=== PATIENT | female | born 1965 | race Caucasian/White ===

== ENCOUNTER 2016-11-04 08:00 | Day surgery (SDC) | payer OTHER ==
[~2016-11-04] VITALS: Ht 167.6 cm; Wt 107.3 kg
[~2016-11-04 08:00] MED LIST: BENA10TA48 PO; COU5 PO; FENO160T13 PO; LANC1COM MC; LANT3I SC; LEVO25TA59 PO; LOVENOX; PANT20TA2 PO; SITA100T8 PO; glucometer
[2016-11-04 08:58] VITALS: Ht 167.6 cm; Wt 107.3 kg
[2016-11-04] MEDS ORDERED: PROPOFOL 20 ML ONE (09:26)
[2016-11-04] MEDS ORDERED: MIDAZOLAM 1 MG/ML 2 ML INJ ONE ×2 (09:26)
[2016-11-04] MEDS ORDERED: INSU300I SQ (09:28)
[2016-11-04] MEDS ORDERED: NOVO3I SC (09:28)
[2016-11-04 09:36] VITALS: BP 153/73; PULSE 66; RESP 16
[2016-11-04 10:35] VITALS: BP 98/41; PULSE 69; RESP 18
--- NOTE | 2016-11-04 11:12 | GILP ---
DATE OF PROCEDURE: 11/04/2016 NAME OF PROCEDURE: Colonoscopy. SURGEON: Babs Garcia MD PREOPERATIVE DIAGNOSES: Change in bowel habit. POSTOPERATIVE DIAGNOSES 1. Colonoscopy all the way to the cecum. 2. Internal hemorrhoids. 3. No colon neoplasm was identified. INDICATION FOR THE PROCEDURE: Ms. Ava Nunez is a 51-year-old female patient who noticed a joshua nge in the bowel habit. The patient never had screening colonoscopy. The procedure and possible complications were well explained to the patient. The patient understood and consented to the procedure. DESCRIPTION OF PROCEDURE: Under the influence of anesthesia, the colonoscope was carefully introduc ed in the rectum and under direct vision, it was advanced all the way to the cecum. FINDINGS: The patient had internal hemorrhoids. No colon neoplasm was identified. She tolerated the procedure very well and there was no complication from the procedure. At the end of the procedure, she was awake with stable vital signs and she was discharged home to the care of h er family. IMPRESSION: 1. Colonoscopy all the way to the cecum. 2. Internal hemorrhoids. 3. No colon neoplasm was identified. PLAN: 1. High fiber diet. 2. Next screening colonoscopy in 10 years. Dictated By: ABBS CLARK/MINH Conf#: [id number] DID#: [id number] CC: BABS GARCIA MD;*EndCC*
== END 2016-11-04 11:54 | disposition home or self-care (01) ==
LOC: GIL 08:00
PROVIDERS: ATTEND Internal Medicine Gastroenterology
DX: R19.4 Change in bowel habit (principal); K64.8 Other hemorrhoids; E11.9 Type 2 diabetes mellitus without complications; I10 Essential (primary) hypertension; E66.9 Obesity, unspecified; Z68.38 Body mass index [BMI] 38.0-38.9, adult
CPT/HCPCS: 45378; 82962; J2250; Z7610

== ENCOUNTER 2016-12-28 13:52 | Emergency (ER) | payer OTHER ==
[~2016-12-28] VITALS: Ht 167.6 cm; Wt 105.5 kg
[~2016-12-28 13:52] MED LIST changes: -FENO160T13 PO; +INSU300I SQ; -LANT3I SC; +NOVO3I SC; -PANT20TA2 PO; -SITA100T8 PO
[2016-12-28 14:04] VITALS: Ht 167.6 cm; Wt 105.5 kg
[2016-12-28] MEDS ORDERED: AMO500 PO (14:32)
[2016-12-28] MEDS ORDERED: FLUT9.9S NASAL (14:33)
[2016-12-28] MEDS ORDERED: ACET500C5 PO (14:33)
[2016-12-28] MEDS ORDERED: CETI10CA PO (14:36)
--- NOTE | 2016-12-28 14:40 | ERD ---
ER Documentation Chief Complaint Date/Time DATE: 12/28/16 TIME: 14:37 Chief Complaint RIGHT EAR PAIN HPI This is a 51-year-old female who presents to the emergency department today complaining of left ear pain that started last night. Patient states that she took Tylenol with codeine but has not really helped. States she has also had some nasal congestion and sore throat. Denies any fevers or chills per ROS All systems reviewed and are negative except as per history of present illness. Medications Home Meds Active Scripts Cetirizine Hcl* (Zyrtec*) 10 Mg Capsule, 10 MG PO DAILY, #14 TAB.CHEW Prov:JOHANA AMEZQUITAC 12/28/16 Fluticasone Propionate (Flonase Allergy Relief) 9.9 Ml [place].susp, 2 SPRAY NASAL DAILY, #1 BOTTLE TO EACH NOSTRIL Prov:JOHANA AMEZQUITAC 12/28/16 Acetaminophen* (Tylophen*) 500 Mg Capsule, 1 CAP PO Q6H Y for PAIN AND OR ELEVATED TEMP, #30 CAP Prov:JOHANA AMEZQUITAC 12/28/16 Amoxicillin* (Amoxicillin*) 500 Mg Cap, 500 MG PO TID for 10 Days, CAP Prov:JOHANA AMEZQUITAC 12/28/16 Lancets/Blood Glucose Strips (Fora [id number] Lanct-Str) 1 Each Combo..pkg , 1 EACH MC AC BREAKFAST DINNER, #100 Prov:GINA GUTIERREZ 11/06/15 [glucometer] No Conflict Check, #1 Prov:GINA GUTIERREZ 11/06/15 Warfarin Sod (Coumadin) 5 Mg Tab, 5 MG PO DAILY@17, #14 TAB Prov:GINA GUTIERREZ 11/06/15 Benazepril Hcl* (Benazepril Hcl*) 10 Mg Tablet, 5 MG PO DAILY, #30 TAB Prov:GINA GUTIERREZ 11/06/15 Reported Medications Insulin Glargine,Hum.rec.anlog (Touvanessa Solostar) 300 Unit/1 Ml Insuln.pen, 50 UNIT SQ DAILY 11/04/16 Insulin Aspart* (Novolog Insulin Pen*) 100 Unit/Ml Soln, 26 UNIT SC TID, EA 11/04/16 [Lovenox] No Conflict Check 07/14/16 Levothyroxine Sodium* (Synthroid*) 25 Mcg Tablet, 25 MCG PO AC BREAKFAST, TAB 04/24/15 Allergies Allergies: Coded Allergies: sulfamethoxazole (Verified Allergy, Unknown, 11/04/16) trimethoprim (Verified Allergy, Unknown, 11/04/16) PMhx/Soc History of Surgery: Yes (, vena cava filter, luanne stent femoral) Anesthesia Reaction: No Hx Neurological Disorder: No Hx Respiratory Disorders: No Hx Cardiac Disorders: No Hx Psychiatric Problems: No Hx Miscellaneous Medical Probl: Yes (hx dvt) Hx Alcohol Use: No Hx Substance Use: No Hx Tobacco Use: No Physical Exam Vitals Vital Signs Date Time Temp Pulse Resp B/P Pulse Ox O2 Delivery O2 Flow Rate FiO2 12/28/16 14:04 98.3 73 19 124/56 99 Physical Exam Const: No acute distress Head: Atraumatic Eyes: Normal Conjunctiva ENT: Right ear TM normal. Left TM with mild erythema and decreased light reflex. Nontender mastoid. Nose no drainage. Throat no erythema no exudate Neck: Full range of motion..~ No meningismus. Resp: Clear to auscultation bilaterally Cardio: Regular rate and rhythm, no murmurs Skin: No petechiae or rashes Neur: Awake and alert Psych: Normal Mood and Affect Procedures/MDM This a 51-year-old female who presents to the emergency department today complaining of left earache that started last night. Patient is afebrile and otherwise well-appearing here on physical exam. Patient has some mild TM erythema in her left ear as well as decreased light reflex and therefore I will treat her with amoxicillin for possible otitis media. There is no purulent drainage. Low suspicion for otitis externa. She is nontender mastoid. Low suspicion for mastoiditis. I have low suspicion for strep pharyngitis, peritonsillar abscess, retropharyngeal abscess, PNA, sinusitis, abscess, meningitis, sepsis, or other acute infectious bacterial process. Patient also mentioned she has had some nasal congestion and some sore throat she may have some element of eustachian tube dysfunction as well. Patient was also given a prescription for Flonase and Zyrtec and Tylenol. At this time the patient is stable for discharge and outpatient management. They should follow up with their PCP in the next 1-2. They may return to the emergency department sooner if symptoms persist or worsen. Patient understood and agreed with the plan. Departure Diagnosis: Primary Impression: Left ear pain Condition: Fair Patient Instructions: Common Middle Ear Problems Referrals: ELAINE FRIAS DO (PCP) Additional Instructions: Call your primary care doctor TOMORROW for an appointment during the next 1-2 days.See the doctor sooner or return here if your condition worsens before your appointment time. Return for any worsening of symptoms or development of fevers Take all medications as prescribed Take your usual pain medication JOHANA AMEZQUITA PA-C Dec 28, 2016 14:40
== END 2016-12-28 14:34 | disposition home or self-care (01) ==
LOC: E/R 13:52
DX: H92.02 Otalgia, left ear (principal); E11.9 Type 2 diabetes mellitus without complications; Z79.01 Long term (current) use of anticoagulants; Z79.4 Long term (current) use of insulin
CPT/HCPCS: 99283

== ENCOUNTER 2017-01-30 18:30 | Emergency (ER) | payer OTHER ==
[~2017-01-30] VITALS: Ht 165.1 cm; Wt 108.0 kg
[~2017-01-30 18:30] MED LIST changes: +ACET500C5 PO; +AMO500 PO; +CETI10CA PO; +FLUT9.9S NASAL
[2017-01-30 18:37] VITALS: Ht 165.1 cm; Wt 108.0 kg
[2017-01-30 20:58] LABS: URINE BLOOD (Dip) POC Trace-lysed (NEGATIVE)
[2017-01-30] MEDS ORDERED: FAMOTIDINE 20 MG TAB PO ONE (21:00)
[2017-01-30 21:15] LABS: ADD SCAN DIFF NO
[2017-01-30 21:17] LABS: BASOPHILS % 0.3 % (0.0-2.0); EOSINOPHILS # 0.2 10^3/ul (0.0-0.5); EOSINOPHILS % 1.8 % (0.0-7.0); HEMOGLOBIN 12.2 g/dl (12.0-16.0); LYMPHOCYTES # 4.6 10^3/ul (0.8-2.9); LYMPHOCYTES % 39.7 % (15.0-51.0); MEAN CORPUSCULAR HEMOGLOBIN 26.9 pg (29.0-33.0); MEAN CORPUSCULAR HGB CONC 31.3 g/dl (32.0-37.0); MEAN CORPUSCULAR VOLUME 86.1 fl (82.0-101.0); MEAN PLATELET VOLUME 9.1 fl (7.4-10.4); MONOCYTE # 0.7 10^3/ul (0.3-0.9); MONOCYTES % 5.7 % (0.0-11.0); NEUTROPHILS % 52.1 % (39.0-77.0); PLATELET COUNT 377 10^3/UL (140-415); RED BLOOD COUNT 4.53 10^6/ul (4.20-5.40); WHITE BLOOD COUNT 11.5 10^3/ul (4.8-10.8)
[2017-01-30 21:35] LABS: ALBUMIN 4.5 g/dl (3.3-4.9); ALBUMIN/GLOBULIN RATIO 1.09; BILIRUBIN,INDIRECT 0.3 mg/dl (0-1.1); BILIRUBIN,TOTAL 0.3 mg/dl (0.2-1.3); CALCIUM 9.4 mg/dl (8.4-10.2); CREATININE 0.85 mg/dl (0.44-1.00); POTASSIUM 4.1 mmol/L (3.5-5.1); TOTAL PROTEIN 8.6 g/dl (6.1-8.1)
--- NOTE | 2017-01-30 22:14 | ERD ---
ER Documentation Chief Complaint Date/Time DATE: 01/30/17 TIME: 22:07 Chief Complaint worsened abd pain since sat. +n/v +diarrhea. +bloating. HPI This is a 51-year-old female presenting to emergency department for abdominal pain, nausea, vomiting and diarrhea 3 days. Patient has patient is also had increased bloating over the past 3 days. Moderate to severe epigastric pain that radiates p to bilateral upper and lower quadrants of abdomen. Denies chest pain, shortness of breath or difficulty breathing. No cough. Patient states she had 4 episodes of bilious emesis yesterday. 2 episodes of bilious emesis today. Nonbloody emesis. Patient has had numerous episodes of yellow liquid stool. No black or tarry stools. Nonbloody stool. Patient denies fever. Patient has history of GERD and states she takes omeprazole at home. No recent travel outside the country. ROS All systems reviewed and are negative except as per history of present illness. Medications Home Meds Active Scripts Mineral Oil* (Fleet* Mineral Oil Enema) 133 Ml Oil, 133 ML [place] NEEDED Y for CONSTIPATION, #1 ENEMA Prov:LESLIE PLATT NP 01/31/17 Cetirizine Hcl* (Zyrtec*) 10 Mg Capsule, 10 MG PO DAILY, #14 TAB.CHEW Prov:JOHANA AMEZQUITA PA-C 12/28/16 Fluticasone Propionate (Flonase Allergy Relief) 9.9 Ml [place].susp, 2 SPRAY NASAL DAILY, #1 BOTTLE TO EACH NOSTRIL Prov:JOHANA AMEZQUITA PA-C 12/28/16 Acetaminophen* (Tylophen*) 500 Mg Capsule, 1 CAP PO Q6H Y for PAIN AND OR ELEVATED TEMP, #30 CAP Prov:JOHANA AMEZQUITA PA-C 12/28/16 Amoxicillin* (Amoxicillin*) 500 Mg Cap, 500 MG PO TID for 10 Days, CAP Prov:JOHANA AMEZQUITA PA-C 12/28/16 Lancets/Blood Glucose Strips (Fora [id number] Lanct-Str) 1 Each Combo..pkg , 1 EACH MC AC BREAKFAST DINNER, #100 Prov:GINA GUTIERREZ 11/06/15 [glucometer] No Conflict Check, #1 Prov:GINA GUTIERREZ. 11/06/15 Warfarin Sod (Coumadin) 5 Mg Tab, 5 MG PO DAILY@17, #14 TAB Prov:GINA GUTIERREZ. 11/06/15 Benazepril Hcl* (Benazepril Hcl*) 10 Mg Tablet, 5 MG PO DAILY, #30 TAB Prov:GINA GUTIERREZ. 11/06/15 Reported Medications Insulin Glargine,Hum.rec.anlog (Toujeo Solostar) 300 Unit/1 Ml Insuln.pen, 50 UNIT SQ DAILY 11/04/16 Insulin Aspart* (Novolog Insulin Pen*) 100 Unit/Ml Soln, 26 UNIT SC TID, EA 11/04/16 [Lovenox] No Conflict Check 07/14/16 Levothyroxine Sodium* (Synthroid*) 25 Mcg Tablet, 25 MCG PO AC BREAKFAST, TAB 04/24/15 Allergies Allergies: Coded Allergies: sulfamethoxazole (Verified Allergy, Unknown, 01/30/17) trimethoprim (Verified Allergy, Unknown, 11/04/16) PMhx/Soc History of Surgery: Yes (, vena cava filter, luanne stent femoral) Anesthesia Reaction: No Hx Neurological Disorder: No Hx Respiratory Disorders: No Hx Cardiac Disorders: No Hx Psychiatric Problems: No Hx Miscellaneous Medical Probl: Yes (hx dvt) Hx Alcohol Use: No Hx Substance Use: No Hx Tobacco Use: No Smoking Status: Never smoker Physical Exam Vitals Vital Signs Date Time Temp Pulse Resp B/P Pulse Ox O2 Delivery O2 Flow Rate FiO2 01/30/17 18:37 97.9 70 18 142/65 98 Physical Exam Const: Alert, no acute distress Head: Atraumatic Eyes: Normal Conjunctiva ENT: Normal External Ears, Nose and Mouth. Neck: Full range of motion..~ No meningismus. Resp: Clear to auscultation bilaterally. No wheezing, rhonchi or crackles. Cardio: Regular rate and rhythm, no murmurs Abd: Soft, moderate distention. Normal bowel sounds, tenderness to epigastric region Skin: No petechiae or rashes Back: No midline or flank tenderness Ext: No cyanosis, or edema Neur: Awake and alert Psych: Normal Mood and Affect Result Diagram: 01/30/17210201/30/172102 Results 24 hrs Laboratory Tests Test 01/30/17 20:59 01/30/17 21:03 Bedside Urine pH (LAB) 5.0 Bedside Urine Protein (LAB) Negative Bedside Urine Glucose (UA) Negative Bedside Urine Ketones (LAB) Negative Bedside Urine Blood Trace-lysed Bedside Urine Nitrite (LAB) Negative Bedside Urine Leukocyte Esterase (L Negative White Blood Count 11.510^3/ul Red Blood Count 4.5310^6/ul Hemoglobin 12.2g/dl Hematocrit 39.0% Mean Corpuscular Volume 86.1fl Mean Corpuscular Hemoglobin 26.9pg Mean Corpuscular Hemoglobin Concent 31.3g/dl Red Cell Distribution Width 16.0% Platelet Count 53147^3/UL Mean Platelet Volume 9.1fl Neutrophils % 52.1% Lymphocytes % 39.7% Monocytes % 5.7% Eosinophils % 1.8% Basophils % 0.3% Nucleated Red Blood Cells % 0.0/100WBC Neutrophils # 6.010^3/ul Lymphocytes # 4.610^3/ul Monocytes # 0.710^3/ul Eosinophils # 0.210^3/ul Basophils # 0.010^3/ul Nucleated Red Blood Cells # 0.010^3/ul Sodium Level 138mmol/L Potassium Level 4.1mmol/L Chloride Level 103mmol/L Carbon Dioxide Level 27mmol/L Anion Gap 12 Blood Urea Nitrogen 9mg/dl Creatinine 0.85mg/dl Glucose Level 130mg/dl Calcium Level 9.4mg/dl Total Bilirubin 0.3mg/dl Direct Bilirubin 0.00mg/dl Indirect Bilirubin 0.3mg/dl Aspartate Amino Transf (AST/SGOT) 48IU/L Alanine Aminotransferase (ALT/SGPT) 47IU/L Alkaline Phosphatase 178IU/L Total Protein 8.6g/dl Albumin 4.5g/dl Globulin 4.10g/dl Albumin/Globulin Ratio 1.09 Current Medications Medications (Trade) Dose Ordered Sig/Casi Route PRN Reason Start Time Stop Time Status Last Admin Dose Admin Famotidine (Pepcid) 20 mg ONCE ONCE PO 01/30/17 21:00 01/30/17 21:01 DC 01/30/17 21:00 Acetaminophen/ Hydrocodone Bitart ([place] (5/325)) 1 tab ONCE ONCE PO 01/30/17 23:00 01/30/17 23:01 DC 01/30/17 23:01 Ondansetron HCl (Zofran Odt) 4 mg ONCE STAT ODT 01/30/17 23:02 01/30/17 23:03 DC 01/30/17 23:05 Sodium Biphosphate/ Sodium Phosphate (Fleet Enema) 133 ml ONCE ONCE OH 01/31/17 01:00 01/31/17 01:01 DC Procedures/MDM ED COURSE: The patient was stable throughout ED course. I kept the patient and/or family informed of laboratory and diagnostic imaging results throughout the ED course. Laboratory CBC white blood cell 11.5 CMP AST 48, alkaline phosphatase 178, protein 8.6, globulin 4.10 Urine dip trace blood otherwise negative Urine negative Imaging CT abdomen and pelvis Patient: RENALDO CASTANEDA : 1965 Age: 51 Sex: F MR #: [id number] DOS: 01/30/17 2142 Ordering MD: LESLIE PLATT NP Location: [facility] Room/Bed: PROCEDURE: CT ABDOMEN/PELVIS WITHOUT CONTRAST CLINICAL INDICATION: 51-year-old female with abdominal pain and distension with diarrhea and vomiting. TECHNIQUE: The study was performed utilizing a GE Xi[employer]ader VCT 64-slice CT scanner. Direct axial sections were obtained through the abdomen and pelvis without the use of intravenous contrast material. Sagittal and coronal reformations were obtained. One or more of the following dose reduction techniques were utilized: automated exposure control, adjustment of the mA and/ or kV according to patient's size or use of iterative reconstruction technique. The images were reviewed on a PACS workstation. CTD/vol = 22.3 mGy; Total Exam DLP = 1276.4 mGy-cm. COMPARISON: CT abdomen/pelvis December 20, 2015. FINDINGS: The lung bases are unremarkable. There is no evidence for significant pleural effusion. The liver has a normal size and contour without focal areas of abnormal density. No intrahepatic nor extrahepatic biliary ductal dilatation is seen. The gallbladder demonstrates no wall thickening nor pericholecystic fluid. No biliary stones are evident. The pancreas is without areas of abnormal attenuation. The spleen is identified and has a normal size with a punctate peripheral calcification seen on axial image 3-58. The adrenal glands are unremarkable. The kidneys are without abnormal density. No hydroureteronephrosis nor nephroureterolithiasis is evident. The urinary bladder contains urine. There is mild retained stool within the ascending and transverse colon without obstruction. There are couple of small diverticula within the sigmoid colon without surrounding inflammatory changes. The appendix is again noted to be mildly prominent measuring up to 7 mm but without abnormal thickening or surrounding inflammatory reaction. There is an inferior vena cava filter again identified extending from the superior L2 to the mid L3 vertebral body. There are stents again identified within the inferior vena cava extending into the left iliac vein. The aortoiliac vessels are without aneurysmal dilatation. Again noted are extensive collateral veins within the lower pelvic and inguinal soft tissues. The osseous structures are intact. IMPRESSION: 1. Mild retained stool within the proximal colon without obstruction. 2. Borderline prominent appendix but without surrounding inflammatory changes and without interval change. 3. Minimal sigmoid diverticulosis. 4. Inferior vena cava filter. 5. Inferior vena cava and iliac vein stents. 6. Persistent extensive collateral veins within the lower ventral pelvic and inguinal soft tissues. MDM: 51-year-old female presents emergency department for epigastric abdominal pain with nausea, vomiting, diarrhea and bloating. Symptoms have started 3 days ago and have worsened. No fevers or chills. Patient has had bilious emesis twice today and yellow liquid stools for the past 3 days. Patient has history of acid reflux and takes omeprazole at home. Patient took omeprazole with no relief of symptoms. Labs show white blood cell 11.5, CMP AST 48, alkaline phosphatase 178, protein 8.6, globulin 4.10. CT abdomen and pelvis shows mild retained stool within the proximal colon without obstruction. Borderline prominent appendix but without surrounding inflammatory changes and without interval change. Minimal sigmoid diverticulosis. Consulted Dr. De Los Santos regarding this patient. We agree that patient should receive a fleet enema while in the ED and should be appropriate for outpatient management and 8 hour ER follow up with continued Abdominal pain. Patient refused fleet enema while in the ER and would like a prescription for this at home. Differential diagnosis includes but not limited to bowel obstruction, cholecystitis, cholelithiasis, appendicitis, diverticulosis, diverticulitis, UTI , pyelonephritis, GERD, gastritis, peptic ulcer disease, gastroparesis and functional dyspepsia. Patient is appropriate for outpatient management and instructed to use fleet enema at home and return to ED in 8 hours for abdominal pain recheck. Patient verbalizes understanding. All questions answered at discharge. Departure Diagnosis: Primary Impression: Abdominal pain Abdominal location: epigastric Qualified Code: R10.13 - Epigastric pain Condition: Stable LESLIE PLATT NP January 30, 2017 22:14
[2017-01-30] MEDS ORDERED: HYDROCODONE/APAP (5/325) TAB PO ONE (23:00)
[2017-01-30] MEDS ORDERED: ONDANSETRON (ODT) 4 MG TAB ODT STA (23:02)
--- NOTE | 2017-01-30 23:20 | RADRPT ---
PROCEDURE: CT ABDOMEN/PELVIS WITHOUT CONTRAST CLINICAL INDICATION: 51-year-old female with abdominal pain and distension with diarrhea and vomit ing. TECHNIQUE: The study was performed utilizing a GE [employer]ed VCT 64-slice CT scanner. Direct axia l sections were obtained through the abdomen and pelvis without the use of intravenous contrast mate rial. Sagittal and coronal reformations were obtained. One or more of the following dose reduction t echniques were utilized: automated exposure control, adjustment of the mA and/or kV according to pat ient's size or use of iterative reconstruction technique. The images were reviewed on a PACS workst [employer] [place]. CTD/vol = 22.3 mGy; Total Exam DLP = 1276.4 mGy-cm. COMPARISON: CT abdomen/pelvis December 20, 2015. FINDINGS: The lung bases are unremarkable. There is no evidence for significant pleural effusion. The liver has a normal size and contour without focal areas of abnormal density. No intrahepatic nor extrahepa tic biliary ductal dilatation is seen. The gallbladder demonstrates no wall thickening nor perichole cystic fluid. No biliary stones are evident. The pancreas is without areas of abnormal attenuation. The spleen is identified and has a normal size with a punctate peripheral calcification seen on axi al image 3-58. The adrenal glands are unremarkable. The kidneys are without abnormal density. No hyd roureteronephrosis nor nephroureterolithiasis is evident. The urinary bladder contains urine. There is mild retained stool within the ascending and transverse colon without obstruction. There are coup le of small diverticula within the sigmoid colon without surrounding inflammatory changes. The appen renetta is again noted to be mildly prominent measuring up to 7 mm but without abnormal thickening or surrounding inflammatory reaction. There is an inferior vena cava filter again identified extending from the superior L2 to the mid L3 vertebral body. There are stents again identified within the inf erior vena cava extending into the left iliac vein. The aortoiliac vessels are without aneurysmal d ilatation. Again noted are extensive collateral veins within the lower pelvic and inguinal soft tiss ues. The osseous structures are intact. IMPRESSION: 1. Mild retained stool within the proximal colon without obstruction. 2. Borderline prominent appendix but without surrounding inflammatory changes and without interval change. 3. Minimal sigmoid diverticulosis. 4. Inferior vena cava filter. 5. Inferior vena cava and iliac vein stents. 6. Persistent extensive collateral veins within the lower ventral pelvic and inguinal soft tissues. .Joey Broderick MD, MD Date Time Electronically viewed and signed by .Joey Broderick MD, MD on 01/30/2017 23:20 ./
[2017-01-31] MEDS ORDERED: NA PHOSPHATE/BIPHOS 133 ML ENEMA PR ONE (01:00)
[2017-01-31] MEDS ORDERED: FLEETOIL PR (01:13)
== END 2017-01-31 01:18 | disposition home or self-care (01) ==
LOC: FTE 18:30
DX: R10.13 Epigastric pain (principal); R11.2 Nausea with vomiting, unspecified; Z79.01 Long term (current) use of anticoagulants; Z79.4 Long term (current) use of insulin
CPT/HCPCS: 74176; 80053; 81003; 85025; Z7502; Z7610

== ENCOUNTER 2018-06-07 22:16 | Emergency (ER) | END 2018-06-08 05:01 | disposition home or self-care (01) ==

== ENCOUNTER 2018-10-11 09:57 | Day surgery (SDC) | payer OTHER ==
[~2018-10-11] VITALS: Ht 167.6 cm; Wt 107.2 kg
[~2018-10-11 09:57] MED LIST changes: -AMO500 PO; +AMOX500C2 PO; +BENA10TA4 PO; -BENA10TA48 PO; +CYCL10TA7 PO; +HYDR-4011 PO; +LEVO25TA PO; -LEVO25TA59 PO; +MINE133E23 PR
--- NOTE | 2018-10-11 10:43 | PREAC ---
Date/Time of Note Date/Time of Note DATE: 10/11/18 TIME: 10:40 Anesthesia Eval and Record Evaluation Time Pre-Procedure Interview DATE: 10/11/18 TIME: 10:40 Age 53 Sex female NPO: 8 hrs Preoperative diagnosis abd pain, chronic heart burn, REFLUX Planned procedure EGD colonoscopy Past Medical History Past Medical History: Includes Cardio: Other (DVT) Endo: Diabetes GI: Obesity, Other (fatty liver) Surgery & Anesthesia Issues No known issue Meds Anticoagulation: Yes Beta Love within 24 hr: No Reason Beta Love not given: Pt. not on B-Love Active Scripts Cyclobenzaprine Hcl* (Cyclobenzaprine Hcl*) 10 Mg Tablet, 10 MG PO TID, #15 TAB Prov:HAILEE OH CONTENT DIRECTOR 06/08/18 Hydrocodone/Acetaminophen ([place] 5-325 Tablet) 1 Each Tablet, 1 TAB PO Q6H PRN for SEVERE PAIN LEVEL 7-10, #20 TAB Prov:HAILEE OH NP 06/08/18 Acetaminophen* (Tylophen*) 500 Mg Capsule, 1 CAP PO Q6H PRN for PAIN AND OR ELEVATED TEMP, #20 CAP Prov:HAILEE OH CONTENT DIRECTOR 06/08/18 Mineral Oil* (Fleet* Mineral Oil Enema) 133 Ml Oil, 133 ML [place] NEEDED PRN for CONSTIPATION, #1 ENEMA Prov:LESLIE PLATT NP 01/31/17 Cetirizine Hcl* (Zyrtec*) 10 Mg Capsule, 10 MG PO DAILY, #14 TAB.CHEW Prov:JOHANA AMEZQUITA PA-C 12/28/16 Fluticasone Propionate (Flonase Allergy Relief) 9.9 Ml [place].susp, 2 SPRAY NASAL DAILY, #1 BOTTLE TO EACH NOSTRIL Prov:JOHANA AMEZQUITAC 12/28/16 Acetaminophen* (Tylophen*) 500 Mg Capsule, 1 CAP PO Q6H PRN for PAIN AND OR ELEVATED TEMP, #30 CAP Prov:JOHANA AMEZQUITA-C 12/28/16 Amoxicillin* (Amoxicillin*) 500 Mg Cap, 500 MG PO TID for 10 Days, CAP Prov:JOHANA AMEZQUITA-C 4/5/17 Lancets/Blood Glucose Strips (Fora [id number] Lanct-Str) 1 Each Combo..pkg, 1 EACH MC AC BREAKFAST DINNER, #100 Prov:GINA GUTIREREZ. 11/06/15 [glucometer] No Conflict Check, #1 Prov:GINA GUTIERREZ. 11/06/15 Warfarin Sod (Coumadin) 5 Mg Tab, 5 MG PO DAILY@17, #14 TAB Prov:GINA GUTIERREZ 11/06/15 Benazepril Hcl* (Benazepril Hcl*) 10 Mg Tablet, 5 MG PO DAILY, #30 TAB Prov:GINA GUTIERREZ. 11/06/15 Reported Medications Insulin Glargine,Hum.rec.anlog (Toujeo Solostar) 300 Unit/1 Ml Insuln.pen, 50 UNIT SQ DAILY 11/04/16 Insulin Aspart* (Novolog Insulin Pen*) 100 Unit/Ml Soln, 26 UNIT SC TID, EA 11/04/16 [Lovenox] No Conflict Check 07/14/16 Levothyroxine Sodium* (Synthroid*) 25 Mcg Tablet, 25 MCG PO AC BREAKFAST, TAB 04/24/15 Meds reviewed: Yes Allergies Coded Allergies: sulfamethoxazole (Verified Allergy, Unknown, 01/30/17) trimethoprim (Verified Allergy, Unknown, 11/04/16) Allergies Reviewed: Yes Labs/Studies Labs Reviewed: Reviewed by anesthesiologist test: N/A (menopause) Pre-procedure Exam Airway: Adequate mouth opening Mallampati: Mallampati I Teeth: Normal Lung: Normal Heart: Normal ASA Physical Status ASA physical status: 2 Emergency: None Planned Anesthetic General/MAC: MAC Planned Pain Management Parenteral pain med Pre-operative Attestations Prior to commencing anesthesia and surgery, the patient was re-evaluated, there was verification of: *The patient's identity *The results of appropriate recent lab work and preoperative vital signs *The above evaluation not changing prior to induction *Anesthetic plan, risk benefits, alternative and complications discussed with patient/family; questions answered; patient/family understands, accepts and wishes to proceed. JAMAR DIXON MD Oct 11, 2018 10:43
[2018-10-11] MEDS ORDERED: PROPOFOL 20 ML ONE (10:51)
[2018-10-11 10:52] VITALS: BP 130/60; PULSE 65; RESP 20
[2018-10-11] MEDS ORDERED: ONDANSETRON 4 MG INJ IV PRN (11:00)
[2018-10-11] MEDS ORDERED: PROTONIX (11:02)
[2018-10-11] MEDS ORDERED: NOVOLOG INSULIN (11:02)
[2018-10-11] MEDS ORDERED: COUMADIN (11:02)
[2018-10-11 12:06] VITALS: BP 106/59; RESP 18
--- NOTE | 2018-10-11 14:22 | PAC ---
Date/Time of Note Date/Time of Note DATE: 10/11/18 TIME: 14:22 Post-Anesthesia Notes Post-Anesthesia Note Last documented vital signs Vital Signs Date Temp Pulse Resp B/P (MAP) Pulse Ox O2 O2 Flow FiO2 Time Delivery Rate 10/11/18 97.2 66 18 106/59 95 Room Air 12:06 (75) 10/11/18 97.2 65 10:52 Activity: WNL Respiratory function: WNL Cardiovascular function: WNL Mental status: Baseline Pain reasonably controlled: Yes Hydration appropriate: Yes Nausea/Vomiting absent: No JAMAR DIXON MD Oct 11, 2018 14:22
== END 2018-10-11 17:15 | disposition home or self-care (01) ==
LOC: GIL 09:57
PROVIDERS: ATTEND Internal Medicine Gastroenterology
DX: K64.8 Other hemorrhoids (principal); K21.9 Gastro-esophageal reflux disease without esophagitis; E11.9 Type 2 diabetes mellitus without complications; E66.9 Obesity, unspecified; Z68.38 Body mass index [BMI] 38.0-38.9, adult
CPT/HCPCS: 43239; 45380; 82962; Z7610; 88305; 88312